=== PATIENT | female | born 2000 | race Two or more races ===

== ENCOUNTER 2018-08-12 13:04 | Emergency (ER) | payer OTHER ==
[~2018-08-12] VITALS: Ht 147.3 cm; Wt 41.6 kg
[2018-08-12] MEDS ORDERED: KETOROLAC 30 MG/1 ML IM ONE (13:30)
[2018-08-12] MEDS ORDERED: ACETAMINOPHEN 325 MG TABLET PO ONE (13:30)
[2018-08-12 13:38] VITALS: BP 106/71
[2018-08-12 13:51] LABS: MICROSCOPIC AUTO
[2018-08-12 13:53] LABS: CULTURE INDICATED? YES
[2018-08-12] MEDS ORDERED: KETOROLAC 30 MG/1 ML ONE (13:53)
[2018-08-12] MEDS ORDERED: ONDANSETRON ODT 4 MG ONE (13:53)
[2018-08-12] MEDS ORDERED: ACETAMINOPHEN 325 MG TABLET ONE (13:53)
[2018-08-12] MEDS ORDERED: ONDANSETRON ODT 4 MG PO ONE (14:00)
[2018-08-12 14:27] LABS: BASOPHILS # (AUTO) 0.04 x10^3/uL (0-0.3); BASOPHILS % (AUTO) 0 % (0-1); EOSINOPHILS # (AUTO) 0.02 x10^3/uL (0-0.8); EOSINOPHILS % (AUTO) 0 % (1-7); LYMPHOCYTES # (AUTO) 1.15 x10^3/uL (1-6.1); LYMPHOCYTES % (AUTO) 11 % (22-44); MD NO; MEAN CORPUSCULAR HEMOGLOBIN 30.6 pg (27.0-34.8); MEAN CORPUSCULAR VOLUME 89.9 fL (80-100); MEAN PLATELET VOLUME 7.6 fL (7.4-10.4); MONOCYTES # (AUTO) 0.33 x10^3/uL (0-1.4); MONOCYTES % (AUTO) 3 % (2-9); NEUTROPHILS # (AUTO) 9.46 x10^3/uL (1.8-8.0); NEUTROPHILS % (AUTO) 86 % (42-75); PLATELET COUNT 370 x10^3/uL (130-400); RED BLOOD COUNT 4.22 x10^6/uL (3.82-5.3); RED CELL DISTRIBUTION WIDTH 12.7 % (9.6-15.2)
[2018-08-12] MEDS ORDERED: CEFTRIAXONE 1,000 MG IM ONE (14:30)
[2018-08-12] MEDS ORDERED: CEFTRIAXONE 1,000 MG ONE (14:35)
[2018-08-12] MEDS ORDERED: LIDOCAINE-MPF 1%, 5ML ONE (14:36)
[2018-08-12 14:45] LABS: ALBUMIN 3.6 g/dL (3.4-5.0); CALCIUM 9.2 mg/dL (8.5-10.1)
[2018-08-12 14:52] LABS: ALANINE AMINOTRANSFERASE 13 U/L (12-78); ALKALINE PHOSPHATASE 45 U/L (45-117); BILIRUBIN,TOTAL 0.4 mg/dL (0.2-1.0); CREATININE 0.81 mg/dL (0.55-1.02); TOTAL PROTEIN 7.5 g/dL (6.4-8.2)
[2018-08-12 15:06] LABS: ANION GAP 8 mmol/L (5-15); CHLORIDE 107 mmol/L (98-107)
== END 2018-08-12 15:20 | disposition home or self-care (01) ==
LOC: ED 15:14
DX: N10 Acute pyelonephritis (principal)
CPT/HCPCS: 36415; 74021; 76770; 80053; 81001; 83690; 84703; 85025; 87077; 87086; 87186; 93005; 96372; 99284; J0696; J1885; Q0162

== ENCOUNTER 2020-05-10 20:22 | Emergency (ER) | payer OTHER ==
[~2020-05-10] VITALS: Ht 149.9 cm; Wt 42.8 kg
[2020-05-10 20:24] VITALS: BP 156/99
== END 2020-05-10 22:39 ==
LOC: ED 21:13
DX: S06.0X0A Concussion without loss of consciousness, initial encounter (principal); S16.1XXA Strain of muscle, fascia and tendon at neck level, initial encounter; S50.02XA Contusion of left elbow, initial encounter; V49.49XA Driver injured in collision with other motor vehicles in traffic accident, initial encounter; Y93.89 Activity, other specified; Y92.410 Unspecified street and highway as the place of occurrence of the external cause; Y99.8 Other external cause status
CPT/HCPCS: 70450; 72125; 99285